=== PATIENT | male | born 1965 | race Caucasian/White ===

== ENCOUNTER 2022-08-03 16:03 | Emergency (ER) | payer BC ==
[~2022-08-03] VITALS: Ht 177.8 cm; Wt 81.6 kg
--- NOTE | 2022-08-03 16:10 | NUR ---
ER at bedside examining patient.
--- NOTE | 2022-08-03 16:10 | NUR ---
Pt BIB ambulance from [facility]. C/O stomach pain. Pain 10/09. Pt states vomiting and nausea of an onset 6 days. Pt denies taking medication for relief. Pt afebrile. Pt AAOX3. VSS. Pt speaks full complete sentences. Skin dry and intact. PERRLA. Pt in bed with side rails up.
--- NOTE | 2022-08-03 16:10 | NUR ---
Placed in room H1 . Placed on gambling monitor, blood pressure machine and pulse oximeter. To gown for exam. Side rails up.
[2022-08-03 16:12] VITALS: BP_SYST 141
[2022-08-03] MEDS ORDERED: LORazepam 2 MG/ML VIAL IVP ONE (16:15)
[2022-08-03] MEDS ORDERED: NACL 0.9% 2,000 ML IV ONE (16:15)
[2022-08-03] MEDS ORDERED: ONDANSETRON HCL 4 MG/2 ML VIAL IVP ONE (16:15)
--- NOTE | 2022-08-03 16:30 | NUR ---
# 20 gauge angiocath placed to left anticubital. Use of asceptic technique. Opsite placed over site. Blood return noted. Blood for lab drawn from site. Flushed with 10 cc of normal saline. No evidence of infiltration noted. Patient tolerated well.
--- NOTE | 2022-08-03 16:45 | NUR ---
NS bolus running
[2022-08-03 17:27] LABS: BASOPHILS % (AUTO) 0.5 % (0.0-2.0); EOSINOPHILS % (AUTO) 0.5 % (0.0-4.0); HEMATOCRIT 46.5 % (36-54); HEMOGLOBIN 15.4 g/dL (14.0-18.0); LYMPHOCYTES % (AUTO) 28.8 % (20.5-51.5); MEAN CORPUSCULAR HEMOGLOBIN 32 pg (27-31); MEAN CORPUSCULAR HGB CONC 33 % (32-36); MEAN CORPUSCULAR VOLUME 97 fL (79.0-98.0); MONOCYTES # (AUTO) 0.2 K/uL (0.0-1.0); MONOCYTES % (AUTO) 6.1 % (1.7-9.3); NEUTROPHILS # (AUTO) 2.2 K/uL (1.8-7.7); NEUTROPHILS % (AUTO) 64.1 % (40.0-70.0); PLATELET COUNT (AUTO) 163 K/uL (130-430); RED CELL DISTRIBUTION WIDTH 13.8 % (9.0-15.0); WHITE BLOOD COUNT (AUTO) 3.5 K/uL (4.8-10.8)
[2022-08-03 17:41] LABS: ACETONE, SERUM NEGATIVE (NEGATIVE); PROTHROMBIN TIME 10.4 SECS (9.5-12.5)
[2022-08-03 17:50] LABS: ALANINE AMINOTRANSFERASE 112 U/L (12-78); ALBUMIN 3.6 g/dL (3.4-4.8); ANION GAP 13 (5-15); ASPARTATE AMINOTRANSFERASE 126 U/L (10-37); CALCIUM 7.3 mg/dL (8.4-11.0); CHLORIDE 104 mmol/L (98-107); CREATININE 1.01 mg/dL (0.55-1.30); GFR AFRICAN AMERICAN 98 mL/min (>90); GLUCOSE 120 mg/dL (70-99); TOTAL BILIRUBIN 0.4 mg/dL (0.0-1.0); UREA NITROGEN, BLOOD 7 mg/dL (8-21)
[2022-08-03 18:00] LABS: ALCOHOL, BLOOD 319 mg/dL (<10); AMYLASE 72 U/L (0-100); LIPASE 224 U/L (73-393)
[2022-08-03 19:13] VITALS: BP_SYST 132
--- NOTE | 2022-08-03 19:13 | NUR ---
Patient given written and verbal discharge instructions and verbalizes understanding. ER MD discussed with patient the results and treatment provided. Patient in stable condition. ID arm band removed. IV catheter removed intact and dressing applied, no active bleeding. Patient educated on pain management and to follow up with PMD. Pain Scale . Opportunity for questions provided and answered. Patient presented to facility under the influence of alcohol. Patient is currently ambulatory with steady gait, able to walk unassisted. Positive gag reflex. Alert and oriented. Is not driving self for discharge out of facility.
== END 2022-08-03 19:13 | disposition home or self-care (01) ==
LOC: SED 16:03
DX: F10.10 Alcohol abuse, uncomplicated (principal); R11.2 Nausea with vomiting, unspecified; R42 Dizziness and giddiness; I10 Essential (primary) hypertension; Z79.899 Other long term (current) drug therapy
CPT/HCPCS: 99284; 96374; 96361; 96375; 80053; 82009; 82140; 82150; 83690; 85025; 85610; 85730; 36415; 83605; G0482; J2060; J2405; J7030

== ENCOUNTER 2022-08-13 12:09 | Emergency (ER) | payer BC ==
[~2022-08-13] VITALS: Ht 182.9 cm; Wt 102.1 kg
[2022-08-13 12:12] VITALS: BP_SYST 134
[2022-08-13] MEDS ORDERED: FOLIC ACID 1 MG, THIAMINE HCL 100 MG, MAGNESIUM SULFATE 1 GM, MVI 10 ML in NACL 0.9% 1,... IV ONE (12:15)
[2022-08-13] MEDS ORDERED: ONDANSETRON HCL 4 MG/2 ML VIAL IVP ONE (12:15)
[2022-08-13] MEDS ORDERED: FAMOTIDINE PF 20 MG/2 ML VIAL IVP ONE (12:15)
[2022-08-13] MEDS ORDERED: chlordiazePOXIDE HCL 25 MG CAPSULE PO ONE (12:45)
[2022-08-13 12:55] LABS: BASOPHILS % (AUTO) 0.5 % (0.0-2.0); EOSINOPHILS % (AUTO) 0.1 % (0.0-4.0); HEMATOCRIT 43.5 % (36-54); HEMOGLOBIN 14.6 g/dL (14.0-18.0); LYMPHOCYTES # (AUTO) 0.6 K/uL (1.0-5.5); LYMPHOCYTES % (AUTO) 18.2 % (20.5-51.5); MEAN CORPUSCULAR HEMOGLOBIN 32 pg (27-31); MEAN CORPUSCULAR HGB CONC 34 % (32-36); MEAN CORPUSCULAR VOLUME 96 fL (79.0-98.0); MONOCYTES # (AUTO) 0.3 K/uL (0.0-1.0); MONOCYTES % (AUTO) 9.1 % (1.7-9.3); NEUTROPHILS # (AUTO) 2.5 K/uL (1.8-7.7); NEUTROPHILS % (AUTO) 72.1 % (40.0-70.0); PLATELET COUNT (AUTO) 171 K/uL (130-430); RED BLOOD CELL COUNT(AUTO) 4.52 MIL/uL (4.2-6.2); RED CELL DISTRIBUTION WIDTH 14.1 % (9.0-15.0); WHITE BLOOD COUNT (AUTO) 3.5 K/uL (4.8-10.8)
[2022-08-13 13:06] LABS: ANION GAP 20 (5-15); CALCIUM 7.6 mg/dL (8.4-11.0); CHLORIDE 96 mmol/L (98-107); CREATININE 1.14 mg/dL (0.55-1.30); GFR AFRICAN AMERICAN 85 mL/min (>90); GLUCOSE 90 mg/dL (70-99); UREA NITROGEN, BLOOD 16 mg/dL (8-21)
[2022-08-13 13:10] LABS: ALANINE AMINOTRANSFERASE 108 U/L (12-78); ALBUMIN 4.1 g/dL (3.4-4.8); ALCOHOL, BLOOD 203 mg/dL (<10); ASPARTATE AMINOTRANSFERASE 123 U/L (10-37); LIPASE 488 U/L (73-393); TOTAL BILIRUBIN 1.4 mg/dL (0.0-1.0)
[2022-08-13 13:23] LABS: ACETAMINOPHEN < 1 ug/mL (1-30)
[2022-08-13] MEDS ORDERED: POTASSIUM CHLORIDE 20 MEQ TAB.PRT.SR PO ONE (13:45)
[2022-08-13] MEDS ORDERED: THIAMINE HCL 100 MG, MAGNESIUM SULFATE 1 GM in NS 100 ML IV ONE (14:00)
[2022-08-13] MEDS ORDERED: FOLIC ACID 1 MG, MVI 10 ML in NACL 0.9% 1,000 ML IV ONE (14:00)
[2022-08-13] MEDS ORDERED: LIB25 PO ×3 (14:09→14:11)
[2022-08-13] MEDS ORDERED: ONDA-8 TL (14:10)
[2022-08-13] MEDS ORDERED: MVI 10 ML VIAL IV ONE (14:51)
[2022-08-13] MEDS ORDERED: FOLIC ACID 5 MG/ML VIAL IV ONE (14:51)
[2022-08-13] MEDS ORDERED: MAGNESIUM SULFATE 1 GM/2 ML VIAL ONE (14:52)
[2022-08-13] MEDS ORDERED: THIAMINE HCL 100 MG/ML VIAL ONE (14:52)
[2022-08-13 17:34] VITALS: BP_SYST 105
== END 2022-08-13 16:15 | disposition home or self-care (01) ==
LOC: SED 12:09
DX: F10.129 Alcohol abuse with intoxication, unspecified (principal); R53.1 Weakness; R11.2 Nausea with vomiting, unspecified; R74.01 Elevation of levels of liver transaminase levels; E87.6 Hypokalemia; E80.6 Other disorders of bilirubin metabolism; E87.4 Mixed disorder of acid-base balance; F41.9 Anxiety disorder, unspecified; I10 Essential (primary) hypertension; Z79.899 Other long term (current) drug therapy; Y90.6 Blood alcohol level of 120-199 mg/100 ml
CPT/HCPCS: 99285; 96365; 70450; 96375; 96366; 80053; 82009; 83690; 85025; 36415; 93005; 76376; 80048; G0482; J3490 ×2; J3475; J2405; J3411; J7030; G0480; G0481